=== PATIENT | female | born 1995 | race Caucasian/White ===

== ENCOUNTER 2018-06-20 14:16 | Emergency (ER) | payer SELFPAY | END 2018-06-20 15:07 | disposition home or self-care (01) | LOC: ERS 14:16 | DX: Z11.3 Encounter for screening for infections with a predominantly sexual mode of transmission (principal); F17.210 Nicotine dependence, cigarettes, uncomplicated | CPT/HCPCS: 99281 ==

== ENCOUNTER 2019-01-10 10:16 | Emergency (ER) | payer BC, SELFPAY | END 2019-01-10 11:03 | disposition home or self-care (01) | LOC: ERS 10:16 | DX: H60.91 Unspecified otitis externa, right ear (principal); F17.290 Nicotine dependence, other tobacco product, uncomplicated | CPT/HCPCS: 94640; J7620 ==

== ENCOUNTER 2019-01-20 11:55 | Emergency (ER) | payer BC | END 2019-01-20 13:30 | disposition home or self-care (01) | LOC: ERS 11:55 | DX: J02.9 Acute pharyngitis, unspecified (principal); F17.210 Nicotine dependence, cigarettes, uncomplicated | CPT/HCPCS: 87081; 87430; 99283 ==